=== PATIENT | female | born 1980 | race Caucasian/White ===

== ENCOUNTER 2017-04-24 00:16 | Emergency (ER) | payer MEDICAID | END 2017-04-24 00:50 | disposition home or self-care (01) | LOC: D.ER 00:16 | DX: K08.89 Other specified disorders of teeth and supporting structures (principal); K04.7 Periapical abscess without sinus; K02.9 Dental caries, unspecified ==

== ENCOUNTER → 2017-10-03 16:50 | Outpatient (CLI) | payer MEDICAID | END | disposition home or self-care (01) | LOC: D.MRI 16:50 | DX: S93.401D Sprain of unspecified ligament of right ankle, subsequent encounter (principal); X58.XXXA Exposure to other specified factors, initial encounter ==

== ENCOUNTER 2018-07-06 23:28 | Emergency (ER) | payer MEDICAID ==
[~2018-07-06] VITALS: Ht 175.3 cm; Wt 110.5 kg
[2018-07-06 23:47] VITALS: Ht 175.3 cm; Wt 110.5 kg
[2018-07-07 00:23] VITALS: BP 111/72
[2018-07-07] MEDS ORDERED: HYDROCODON-ACE1 EAC7 PO (02:02)
[2018-07-07] MEDS ORDERED: ZITHROMAX500 MG PO (02:02)
== END 2018-07-07 02:36 | disposition home or self-care (01) ==
LOC: D.ER 23:28
DX: J20.9 Acute bronchitis, unspecified (principal); R07.89 Other chest pain